=== PATIENT | male | born 1975 | race Caucasian/White ===

== ENCOUNTER 2019-11-30 15:42 | Emergency (ER) | payer BC, SELFPAY ==
[2019-11-30] VITALS (7 sets, daily range): BP systolic 108–142; BP diastolic 70–79; PULSE 60–91; RESP 16–20; TEMP 36.2–36.8; O2SAT 98–100
--- NOTE | ~2019-11-30 | XR_ITS ---
EXAMINATION: XR chest 2V DATE: 11/30/2019 16:09 INDICATION: Right-sided chest pain rating to the back TECHNIQUE: PA and lateral views of the chest were obtained. COMPARISON: None FINDINGS: The lungs are clear with no focal airspace opacities, pulmonary edema, pleural effusion or pneumothor ax. The cardiomediastinal silhouette is normal. Visualized bones and soft tissues are unremarkable. IMPRESSION: 1. No acute cardiopulmonary disease. Reviewed, dictated and finalized at location A.
--- NOTE | 2019-11-30 15:49 | ECG_ITS ---
Measurements Intervals [place] Rate: 61 P: 54 ND: 156 QRS: 40 QRSD: 95 T: 61 QT: 377 QTc: 381 Interpretive Statements SINUS RHYTHM NORMAL ECG Electronically Signed On 11-30-2019 17:31:35 CDT by Ken Mckinney D.O.
[2019-11-30] MEDS: ASPIRIN 81 MG CHEWABLE TABLET 324 MG PO (15:53)
[2019-11-30 16:01] LABS: Basophils Absolute Auto 0.1 K/mm3 (0.0-0.1); Basophils Percent Auto 0.6 % (0.2-1.2); Eosinophils Absolute Auto 0.2 K/mm3 (0-0.3); Hematocrit 45.5 % (42.0-52.0); Hemoglobin 15.7 g/dL (14.0-18.0); Immature Granulocyte Absolute 0.05 K/mm3 (0.00-0.031); Immature Granulocyte Percent A 0.6 % (0-0.5); Lymphocytes Absolute Auto 2.59 K/mm3 (0.9-3.2); Lymphocytes Percent Auto 30.9 % (18.3-44.2); Mean Corpuscular HGB Conc 34.5 g/dl (32-36); Mean Corpuscular Hemoglobin 32.1 pg (26-34); Mean Platelet Volume 10.4 fl (7.4-10.4); Monocytes Absolute Auto 0.9 K/mm3 (0.1-0.6); Monocytes Percent Auto 10.6 % (2.6-8.5); Neutrophils Absolute Auto 4.6 K/mm3 (1.3-6.7); Neutrophils Percent Auto 55.3 % (45.5-73.1); Platelet Count Result 209 k/mm3 (150-375); Red Blood Count 4.89 M/mm3 (4.6-6.20); Red Cell Distribution Width 12.2 % (11.5-14.5); White Blood Count 8.4 K/mm3 (4.5-10.0)
[2019-11-30 16:11] LABS: Alanine Aminotransferase 38 U/L (4-50); Albumin Level 4.6 g/dL (3.5-5.1); Alkaline Phosphatase 68 U/L (38-126); Aspartate Amino Transferase 32 U/L (17-59); Bilirubin,Total 0.2 mg/dL (0.2-1.3); Blood Urea Nitrogen 19 mg/dL (9-20); Calcium 9.1 mg/dL (8.4-10.2); Carbon Dioxide 26 mmol/L (22-30); Chloride 104 mmol/L (98-107); Estimated CRCL calculation 121 ml/min; Estimated Glomerular Filt Rate > 60; Glucose 106 mg/dL (75-110); Lipase 199 U/L (23-300); Sodium 138 mmol/L (137-145)
[2019-11-30 16:12] LABS: Prothrombin Time 12.5 Seconds (11.1-14.7)
[2019-11-30 16:13] LABS: Partial Thromboplastin Time 29.2 SECONDS (22.3-36.8)
[2019-11-30 16:23] LABS: Troponin I < 0.012 ng/mL (0.000-0.034)
--- NOTE | 2019-11-30 16:34 | ED.CHESTPAIN ---
HPI - Chest Pain General Chief Complaint: Chest Pain Stated Complaint: Chest pain Time Seen by Provider: 11/30/19 15:52 Source: patient Mode of arrival: ambulatory Limitations: no limitations History of Present Illness HPI narrative: This is a 44 year old male that presents to the ER for chest pain x 1 hour. Reports he was laying down to take a nap. Reports he started to have some chest tightness. Reports that is improved since onset. Reports still has some mild discomfort. Denies fever, cough, shortness of breath, history of blood clots, recent travel or surgery, or lower extremity edema. Related Data Home Medications Medication Instructions Recorded Confirmed escitalopram oxalate mg 11/30/19 nebivolol [Bystolic] mg 11/30/19 Allergies Allergy/AdvReac Type Severity Reaction Status Date / Time No Known Allergies Allergy Verified 11/30/19 15:48 Review of Systems Review of Systems: Narrative: CONSTITUTIONAL: Denies fever CARDIOVASCULAR: Reports chest pain. Denies edema. RESPIRATORY: Denies cough or dyspnea. All systems reviewed & are unremarkable except as noted in HPI and below PMFSH Past Medical History Medical History (Updated 11/30/19 @ 19:53 by Nani Avila PA-C) History of hypertension Social History Social History (Updated 11/30/19 @ 16:34 by Nani Avila PA-C) Substance use: current Substance use type: marijuana and amphetamines Exam Narrative: Exam Narrative: GENERAL: Well-appearing, well-nourished, and in no acute distress. HEAD: Normocephalic, atraumatic. EYES: EOMI. NECK: Supple. No adenopathy or masses. No carotid bruits or JVD CHEST: Clear to auscultation. No respiratory distress. No wheezes rales or rhonchi HEART: Regular rate and rhythm. No murmur heard. Normal peripheral pulses. ABDOMEN: Soft, nontender, nondistended, normal active bowel sounds. EXTREMITIES: Normal range of motion. No edema. SKIN: Warm, dry, no rash. NEURO: No focal deficits. Alert and oriented x3. PSYCH: Normal mood and affect Course Vital Signs Vital signs: Vital Signs Temperature 97.2 F L 11/30/19 15:44 Pulse Rate 67 11/30/19 15:44 Respiratory Rate 20 11/30/19 15:44 Temperature 97.2 F L 11/30/19 15:44 Pulse Rate 60 11/30/19 19:20 Respiratory Rate 19 11/30/19 19:20 Blood Pressure 130/70 11/30/19 19:20 Pulse Oximetry 100 11/30/19 19:20 MDM - Chest Pain MDM Narrative Medical decision making narrative: Patient presents to the emergency department for chest pain. He is afebrile and nontoxic-appearing. Vitals are normal. CBC and metabolic panel without acute findings. Baseline and 3-hour troponin are negative. EKG without concerning changes. Chest x-ray without acute findings. PERC criteria negative. Patient reports relief with Pepcid and Tylenol. Heart score is 1. Patient was updated on case findings. Patient stable felt appropriate for further outpatient evaluation. He is to follow-up with primary care doctor. He was given warnings to return to the ER Lab Data Attestation: I reviewed the patient's lab results. Result diagrams: 11/30/19 15:52 11/30/19 15:52 Labs: Lab Results 11/30/19 11/30/19 11/30/19 Range/Units 15:52 15:52 15:52 WBC 8.4 (4.5-10.0) K/mm3 RBC 4.89 (4.6-6.20) M/mm3 Hgb 15.7 (14.0-18.0) g/dL Hct 45.5 (42.0-52.0) % MCV 93.0 (80-100) fl MCH 32.1 (26-34) pg MCHC 34.5 (32-36) g/dl RDW 12.2 (11.5-14.5) % Plt Count 209 (150-375) k/mm3 MPV 10.4 (7.4-10.4) fl Immature Gran % (Auto) 0.6 H (0-0.5) % Neut % (Auto) 55.3 (45.5-73.1) % Lymph % (Auto) 30.9 (18.3-44.2) % [place] % (Auto) 10.6 H (2.6-8.5) % Eos % (Auto) 2.0 (0-4.4) % Baso % (Auto) 0.6 (0.2-1.2) % Lymph # (Auto) 2.59 (0.9-3.2) K/mm3 [place] # (Auto) 0.9 H (0.1-0.6) K/mm3 Eos # (Auto) 0.2 (0-0.3) K/mm3 Baso # (Auto) 0.1 (0.0-0.1) K/mm3 Abs Immat Gran (auto)
[2019-11-30] MEDS: ONDANSETRON INJ 4 MG/2 ML VIAL IV PUSH (16:39)
[2019-11-30] MEDS: FAMOTIDINE 20 MG/2 ML VIAL IV PUSH (16:39)
[2019-11-30 19:32] LABS: Troponin I < 0.012 ng/mL (0.000-0.034)
== END 2019-11-30 19:58 | disposition home or self-care (01) ==
PROVIDERS: Emergency Provider Emergency Medicine
DX: R07.89 Other chest pain (principal); I10 Essential (primary) hypertension
CPT/HCPCS: 36415; 71046; 80053; 83690; 84484; 85025; 85610; 85730; 93005; 96365; 96375; 99284; A9270; J0131; J2405